=== PATIENT | male | born 2000 | race African-American/Black ===

== ENCOUNTER 2025-04-11 13:41 | Emergency (ER) | payer SELFPAY ==
[2025-04-11 13:49] VITALS: BP 109/69
[2025-04-11] MEDS: MOTRIN 600 MG PO (15:39)
[2025-04-11] MEDS: TYLENOL 1000 MG PO (15:39)
--- NOTE | 2025-04-11 18:04 | ED.GENMED ---
History of Present Illness
General
Chief Complaint: Musculo-Skeletal Complaint
Source: patient
Time Seen by Provider: 04/11/25 15:05
History of Present Illness
History of Present Illness:
The patient is a 24-year-old male who presented after experiencing a fall. He described the incident as tripping, during which his body fell but his left leg did not follow suit, suggesting a twisting mechanism of injury. The patient reported pain
localized to his left knee following the fall.
Phy Exam
Physical Exam
Physical Exam:
General: Awake, Alert, Oriented X3. No acute distress.
Vitals: unremarkable
Head: Atraumatic
Eyes: Pupils equal, EOMI
Throat: Airway intact, no exudates
Neck: Trachea midline
Neuro: Nonfocal
Skin: Warm, dry, no rash
Extremities: pulses equal b/l, swelling noted left knee. Tender to palpation about the knee.
Course
Orders/Labs/Results
Orders:
Orders
04/11/25 13:44
Knee, Left 4 or More Views [CR Knee - Left 4 Or More View*] Urgent
Comment:
Reason For Exam: pain injury
04/11/25 14:58
Knee Immobilizer Left-Treatmen ONCE
Acetaminophen [Tylenol] 1,000 mg PO NOW STA
Ibuprofen [Motrin] 600 mg PO NOW STA
04/11/25 15:04
CT Lower Ext W/o Iv Cont Lt Urgent
Comment:
Reason For Exam: eval tibial plat fx
Vital Signs
Initial and Last Documented VS:
Initial Vital Signs
Pulse Resp BP Pulse Ox
80 18 109/69 97
04/11/25 13:49 04/11/25 13:49 04/11/25 13:49 04/11/25 13:49
Last Documented Vital Signs
Pulse Resp BP Pulse Ox
80 18 109/69 97
04/11/25 13:49 04/11/25 13:49 04/11/25 13:49 04/11/25 18:08
MDM/Problems Addressed
Differential Diagnosis Includes:
Ligamentous injury, fracture, sprain
MDM/Problems Addressed:
Patient presents with left knee pain after falling and twisting his knee. Imaging shows he has a tibial plateau fracture and a fibular head fracture. Images reviewed by Dr. Milligan. Patient is appropriate for outpatient follow-up as long as he
stays nonweightbearing. Will place him in a knee immobilizer and provide crutches. Will give him contact information for Dr. Hamm that the patient lives in [facility] and may choose to follow-up with someone closer to home. I explained
that the patient will need to call an orthopedic surgeon Sunday morning to arrange an appointment as this is not something he should take time arranging.
*Radiology
Radiology exam reviewed: radiology read reviewed
*Pulse Oximetry
SaO2: 97
Oxygen Mode of Delivery: Room air
Patient hypoxic: no
*Critical Care Note
Total Time (30-74mins, 75-104mins- exclusive of procedures): Not Applicable
ED Attending Note
-
Portions of this chart may have been created with voice recognition software.� Occasional wrong word or��sound alike� substitutions may have occurred due to the inherent limitations of voice recognition software.
Discharge Plan
Departure
Patient Disposition: Home (Routine Discharge)
Date of Disposition: 04/11/25
Time of Disposition: 18:06
Patient with high blood pressure during this ER visit?: No
Condition: Good
Discharge Problem:
Fracture of tibial plateau, closed, Closed fracture fibula, head
Instructions: Lower leg fracture, How to use crutches
Prescriptions:
New
oxycodone 5 mg tablet
5 mg PO Q6H PRN (Reason: Pain) Qty: 12 0RF
Referrals:
NONE,* [Family Provider, Internal Medicine]
Vickey Shane MD [Active, Orthopedics]
Activity Restrictions/Additional Instructions:
You need to follow-up with an orthopedic surgeon. Call first thing Sunday morning. I given you contact information for our orthopedic surgeon. You should not put any weight on the broken leg. Keep the knee immobilizer on and use crutches to get
around.
Interventions
Interventions:
*Risk Screen - Suicide Last Done: 04/11/25 13:49
*General Assessment Last Done: 04/11/25 13:49
*Neglect/Abuse Screening Last Done: 04/11/25 17:54
*ED COVID-19 Vaccine History Last Done: 04/11/25 17:54
ED-Musculoskeletal Assessment Last Done: 04/11/25 16:00
Discharge Date and Time
Print Language: MACEDONIAN
== END 2025-04-11 19:18 | disposition home or self-care (01) ==
LOC: EMR 13:41
PROVIDERS: EMERGENCY PHYSICIAN Emergency Medicine
DX: S82.145A Nondisplaced bicondylar fracture of left tibia, initial encounter for closed fracture (principal); S82.492A Other fracture of shaft of left fibula, initial encounter for closed fracture; W01.0XXA Fall on same level from slipping, tripping and stumbling without subsequent striking against object, initial encounter
CPT/HCPCS: 99284; 29505; 73564; 73700